=== PATIENT | male | born 1995 | race Caucasian/White ===

== ENCOUNTER 2022-05-03 21:31 | Emergency (ER) | payer BC ==
[2022-05-03] MEDS ORDERED: Ondansetron 4 MG/2 ML SDV IVPUSH ONE (22:20)
[2022-05-03] MEDS ORDERED: Sodium Chloride 0.9% 1,000 ML IV ONE ×2 (22:20→23:27)
[2022-05-03] MEDS ORDERED: LORazepam 2 MG/ML SDV IVPUSH STA (22:21)
[2022-05-03 23:22] LABS: ESTIMATED GFR 107 mL/min (>60)
[2022-05-04] MEDS ORDERED: Magnesium Sulfate/Water 2 GM in Premix Bag 1 BAG IV ONE (00:38)
[2022-05-04] MEDS ORDERED: Potassium Chloride 20 MEQ Tab.ER PO ONE (02:31)
== END 2022-05-04 02:57 | disposition home or self-care (01) ==
LOC: JD.ED 21:31
DX: E87.6 Hypokalemia (principal); E83.42 Hypomagnesemia; F10.129 Alcohol abuse with intoxication, unspecified; I95.1 Orthostatic hypotension; Z86.16 Personal history of COVID-19; Z20.822 Contact with and (suspected) exposure to COVID-19
CPT/HCPCS: 36415; 71045; 71045-26; 80053; 83605; 83735; 84443; 85025; 85379; 93005; 93010; 96361; 96365; 96366; 96375; 99284; 99285-25; A9270-GY; J2060; J2405; J3475; J7030; U0002

== ENCOUNTER 2023-11-17 08:35 | Emergency (ER) | payer SELFPAY ==
[2023-11-17] MEDS: Sodium Chloride 0.9% 1,000 ML IV ONE ×4 (08:40→11:01)
[2023-11-17 08:49] LABS: BASE EXCESS VENOUS -18.7 (-4.0-2.0); BICARBONATE,VENOUS 14.4 meq/L (22-26); O2 SATURATION VENOUS 47.6; PCO2 VENOUS 58.9 mmHg (41-51); PH,VENOUS 7.02 (7.30-7.40)
[2023-11-17] MEDS ORDERED: Midazolam 1 MG/ML 2 ML SDV ONE (08:50)
[2023-11-17 08:54] LABS: BASOPHILS ABSOLUTE AUTO 0.2 K/mm3 (0.0-0.2); BASOPHILS PERCENT AUTO 0.6 % (0.0-1.0); EOSINOPHILS ABSOLUTE AUTO 0.1 K/mm3 (0.0-0.4); EOSINOPHILS PERCENT AUTO 0.3 % (0.0-6.0); HEMATOCRIT 51.5 % (42.0-52.0); HEMOGLOBIN 17.3 gm/dl (14.0-18.0); IMMATURE GRAN ABSOLUTE AUTO 0.47 K/mm3 (0.00-0.05); IMMATURE GRAN PERCENT AUTO 1.5 % (0.0-0.4); LYMPHOCYTES ABSOLUTE AUTO 3.7 K/mm3 (1.0-4.8); LYMPHOCYTES PERCENT AUTO 11.5 % (24.0-44.0); MEAN CORPUSCULAR HEMOGLOBIN 31.5 pg (28.0-32.0); MEAN CORPUSCULAR HGB CONC 33.6 g/dl (32.0-36.0); MEAN CORPUSCULAR VOLUME 93.6 fl (83.0-99.0); MEAN PLATELET VOLUME 9.2 fl (9.4-12.4); MONOCYTES PERCENT AUTO 6.2 % (0.0-8.0); NEUTROPHILS ABSOLUTE AUTO 25.9 K/mm3 (1.8-7.7); NEUTROPHILS PERCENT AUTO 79.9 % (41.0-71.0); PLATELET COUNT,PLT 334 K/mm3 (150-400)
[2023-11-17 09:06] LABS: INR 1.08; PROTHROMBIN TIME 11.5 SECONDS (9.7-12.0)
[2023-11-17 09:07] LABS: PTT,PARTIAL THROMBOPLSTIN TIME 26.2 SECONDS (21.7-31.4)
[2023-11-17 09:17] LABS: SLIDE REVIEW ABNORMAL SMEAR
[2023-11-17] MEDS: Iopamidol 612 MG/ML 30 ML SDV IVPUSH ONE (09:21)
[2023-11-17] MEDS: Sodium Chloride 0.9% 10 ML Syringe FLUSH PRN (09:21)
[2023-11-17] MEDS: Iopamidol 612 MG/ML 100 ML Bottle IVPUSH ONE (09:21)
[2023-11-17 09:26] LABS: A/G RATIO 1.2 (1-2); ALANINE AMINOTRANSFERASE,ALT 59 U/L (16-63); ALBUMIN 4.9 g/dl (3.4-5.0); ALKALINE PHOSPHATASE 179 U/L (46-116); ANION GAP 27.7 (5-15); BILIRUBIN TOTAL 0.3 mg/dL (0.2-1.0); BLOOD UREA NITROGEN,BUN 14 mg/dL (7-18); BUN/CREATININE RATIO 6.7 (14-18); CHLORIDE,CL 105 mEq/L (98-107); CREATININE 2.1 mg/dL (0.7-1.3); ESTIMATED GFR 44 mL/min (>60); ETHANOL BLOOD MEDICAL 0.28 gm% (0.00); GLUCOSE RANDOM 184 mg/dL (70-99); SODIUM,NA 145 mEq/L (136-145); TROPONIN I HIGH SENSITIVITY 56 pg/mL (<=76)
[2023-11-17 09:29] LABS: CARBON DIOXIDE,CO2 16 mEq/L (21-32)
[2023-11-17 09:30] LABS: ASPARTATE AMNIOTRANSFERASE,AST 123 U/L (15-37); CREATINE KINASE,CK 4562 U/L (39-308); POTASSIUM,K 3.7 mEq/L (3.5-5.1)
[2023-11-17 09:36] LABS: APPEARANCE,URINE CLEAR (Clear); BILIRUBIN,URINE NEGATIVE (Negative); COLOR,URINE LIGHT YELLOW (Yellow); GLUCOSE,URINE NEGATIVE (Negative); KETONES,URINE NEGATIVE (Negative); LEUKOCYTE ESTERASE,URINE NEGATIVE (Negative); NITRITE,URINE NEGATIVE (Negative); OCCULT BLOOD,URINE 3+ (Negative); PROTEIN,URINE 2+ (Negative); UROBILINOGEN,URINE 0.2 (0.2-1.0)
[2023-11-17] MEDS: ceFAZolin 2 GM in Sodium Chloride 0.9% 50 ML IV ONE (09:40)
[2023-11-17 09:45] LABS: BARBITURATE SCREEN,URINE NEGATIVE (CUTOFF=200); BENZODIAZEPINES SCREEN,URINE NEGATIVE (CUTOFF=150); BUPRENORPHINE SCREEN,URINE NEGATIVE (CUTOFF=10); METHADONE SCREEN, URINE NEGATIVE (CUT0FF=200); METHAMPHETAMINES SCREEN, URINE NEGATIVE (CUTOFF=500); OXYCODONE SCREEN,URINE NEGATIVE (CUT0FF=100); THC SCREEN,URINE 20 NG/ML NEGATIVE (CUTOFF=50)
[2023-11-17] MEDS: Diphtheria,Pertussis(Acell),Tetanus Vaccine 0.5 ML Syringe IM ONE (09:50)
[2023-11-17 09:51] LABS: AMPHETAMINES SCREEN, URINE NEGATIVE (CUTOFF=500)
[2023-11-17 11:14] LABS: BASE EXCESS VENOUS -13.6 (-4.0-2.0); BICARBONATE,VENOUS 14.3 meq/L (22-26); O2 SATURATION VENOUS 90.6; PCO2 VENOUS 39.8 mmHg (41-51); PH,VENOUS 7.18 (7.30-7.40)
[2023-11-17 11:46] LABS: A/G RATIO 1.1 (1-2); ANION GAP 25.1 (5-15); BILIRUBIN TOTAL 0.3 mg/dL (0.2-1.0); BUN/CREATININE RATIO 10.7 (14-18); CREATININE 1.4 mg/dL (0.7-1.3); EST CRCL DRUG DOSING (CG) 87.76 mL/min; POTASSIUM,K 4.1 mEq/L (3.5-5.1); PROTEIN TOTAL,TP 7.5 g/dl (6.4-8.2)
[2023-11-17 11:58] LABS: CALCIUM 7.4 mg/dL (8.5-10.1)
[2023-11-17] MEDS: Sodium Chloride 0.9% 1,000 ML IV SCH (12:10)
[2023-11-17] MEDS: Morphine 4 MG/ML Syringe IVPUSH ONE (13:36)
== END 2023-11-17 14:30 ==
LOC: JD.ED 08:35
DX: F10.129 Alcohol abuse with intoxication, unspecified (principal); N17.9 Acute kidney failure, unspecified; M62.82 Rhabdomyolysis; T33.821A Superficial frostbite of right foot, initial encounter; T33.822A Superficial frostbite of left foot, initial encounter; T68.XXXA Hypothermia, initial encounter; Z23 Encounter for immunization; Z86.16 Personal history of COVID-19; Y90.0 Blood alcohol level of less than 20 mg/100 ml
CPT/HCPCS: 36415; 51702; 70450; 71045; 71260; 72125; 74177; 80053; 80306; 80307; 81003; 82550; 82803; 83605; 84484; 85025; 85610; 85730; 86850; 86900; 86901; 90471; 90715; 93005; 96361; 96365; 96375; 99285; J0690; J2250; J2270; J3490; J7030; Q9967; 93010